=== PATIENT | female | born 1965 | race Caucasian/White ===

== ENCOUNTER → 2021-12-31 | Outpatient (CLI) | payer OTHER ==
[~2021-12-31] MED LIST: EXCEDRIN TENSION HA; FLEXERIL 1010 MG/TAB PO; NO HOME MEDICATIONS
== END ==
LOC: COL.RAD 08:52
DX: M19.011 Primary osteoarthritis, right shoulder (principal); M19.012 Primary osteoarthritis, left shoulder; M17.11 Unilateral primary osteoarthritis, right knee; M25.562 Pain in left knee; Z96.652 Presence of left artificial knee joint